=== PATIENT | female | born 1980 | race Caucasian/White ===

== ENCOUNTER 2016-12-31 20:23 | Emergency (ER) | payer BC ==
[~2016-12-31] VITALS: Ht 157.5 cm; Wt 55.0 kg
[2016-12-31 20:24] VITALS: BP 134/78; PULSE 71; RESP 18; TEMP 98.4; O2SAT 97
[2016-12-31] MEDS ORDERED: LEVO75TA3 PO (20:33)
[2016-12-31] MEDS ORDERED: SODIUM CHLOR 0.9% 1000 ML INJ 1,000 ML IV ONE (20:39)
[2016-12-31] MEDS ORDERED: SODIUM CHLORIDE 0.9% FLUSH 5 ML FLUSH IVF PRN (20:45)
--- NOTE | 2016-12-31 20:59 | PD ---
HPI . Syncope Chief Complaint: Syncope/Near-Syncope Time Seen by Provider: 20:38 Travel History International Travel<30 days: No Contact w/Intl Traveler<30days: No Traveled to known affect area: No History of Present Illness HPI Patient presents to us from upstairs where she was visiting a family member. She had a syncopal event. The patient and the described nausea and dizziness. The patient then grabbed her and was lowered to the floor. The feels that she had a syncopal episode lasting about 15 seconds. Since then, she has had redness and warmth of her face and ears. The patient and the states that this is not an abnormal thing for this patient. The patient denies any associated chest pain, shortness of breath or palpitations. She denies any previous similar history. PENDING SALE TO [facility] Past Medical History Narrative Medical Past medical history is significant for hypothyroidism. Thyroid Disease: Yes (HYPO) Tetanus Vaccination: > 5 Years Influenza Vaccination: No ?: Not LMP: 12/14/16 : 2 Para: 2 Tubal Ligation: Yes Past Surgical History Section: Yes Social History Alcohol Use: No (OCC) Tobacco Use: No Substance Use: No Allergies-Medications (Allergen,Severity, Reaction): Coded Allergies: No Known Allergies (Unverified , 12/31/16) Reported Meds & Prescriptions Reported Meds & Active Scripts Active Reported Levothyroxine (Levothyroxine Sodium) 75 Mcg Tab 75 Mcg PO DAILY Review of Systems Except as stated in HPI: all other systems reviewed are Neg Eyes: No: Blurred Vision HENT: Positive: Lightheadedness, No: Headaches Cardiovascular: No: Chest Pain or Discomfort, Palpitations Respiratory: No: Shortness of Breath Gastrointestinal: Positive: Nausea Neurologic: Positive: Dizziness, Syncope, No: Focal Abnormalities, Headache, Slurred Speech, Incontinence, Seizures Physical Exam Narrative GENERAL: Healthy-appearing in no acute distress. SKIN: Warm and dry. HEAD: Atraumatic. Normocephalic. Scalp is nontender. EYES: Pupils equal and round. Extraocular movements are intact. ENT: No nasal bleeding or discharge. Mucous membranes pink and moist. NECK: Trachea midline. Neck is supple and nontender. CARDIOVASCULAR: Regular rate and rhythm. Heart sounds are normal. RESPIRATORY: No accessory muscle use. Lungs are clear with full air movement throughout. GASTROINTESTINAL: Abdomen soft, non-tender, nondistended. MUSCULOSKELETAL: No obvious deformities. No edema. NEUROLOGICAL: Awake and alert. No obvious cranial nerve deficits. Motor grossly within normal limits. Normal speech. PSYCHIATRIC: Appropriate mood and affect; insight and judgment normal. Data Data Last Documented VS Vital Signs Date Time Temp Pulse Resp B/P Pulse Ox O2 Delivery O2 Flow Rate FiO2 12/31/16 20:28 72 18 98 12/31/16 20:24 98.4 134/78 Orders Electrocardiogram (12/31/16 20:39) Basic Metabolic Panel (Bmp) (12/31/16 20:39) Ed Urine Pregnancytest Poc (12/31/16 20:39) Complete Blood Count With Diff (12/31/16 20:39) Ckmb (Isoenzyme) Profile (12/31/16 20:39) Troponin I (12/31/16 20:39) Chest, Single Ap (12/31/16 20:39) Ecg Monitoring (12/31/16 20:39) Iv Access Insert/Monitor (12/31/16 20:39) Oximetry (12/31/16 20:39) Sodium Chloride 0.9% Flush (Ns Flush) (12/31/16 20:45) Sodium Chlor 0.9% 1000 Ml Inj (Ns 1000 M (12/31/16 20:39) CKMB (12/31/16 21:00) CKMB% (12/31/16 21:00) Labs Laboratory Tests Test 12/31/16 21:00 White Blood Count 9.5 TH/MM3 Red Blood Count 4.58 MIL/MM3 Hemoglobin 13.5 GM/DL Hematocrit 39.3 % Mean Corpuscular Volume 85.9 FL Mean Corpuscular Hemoglobin 29.5 PG Mean Corpuscular Hemoglobin 34.3 % Concent Red Cell Distribution Width 13.1 % Platelet Count 220 TH/MM3 Mean Platelet Volume 10.3 FL Neutrophils (%) (Auto) 59.5 % Lymphocytes (%) (Auto) 28.8 % Monocytes (%) (Auto) 5.4 % Eosinophils (%) (Auto) 5.2 % Basophils (%) (Auto) 1.1 % Neutrophils # (Auto) 5.7 TH/MM3 Lymphocytes # (Auto) 2.7 TH/MM3 Monocytes # (Auto) 0.5 TH/MM3 Eosinophils # (Auto) 0.5 TH/MM3 Basophils # (Auto) 0.1 TH/MM3 CBC Comment DIFF FINAL Differential Comment Sodium Level 136 MEQ/L Potassium Level 3.5 MEQ/L Chloride Level 101 MEQ/L Carbon Dioxide Level 26.1 MEQ/L Anion Gap 9 MEQ/L Blood Urea Nitrogen 21 MG/DL Creatinine 0.81 MG/DL Estimat Glomerular Filtration 80 ML/MIN Rate Random Glucose 102 MG/DL Calcium Level 8.5 MG/DL Total Creatine Kinase 114 U/L Troponin I LESS THAN 0.02 NG/ML MDM Medical Decision Making Medical Screen Exam Complete: Yes Emergency Medical Condition: Yes Interpretation(s) EKG shows a normal sinus rhythm with no acute ischemic changes. She has a normal EKG. Differential Diagnosis My differential diagnosis of syncope includes but is not limited to cardiac arrhythmia, hypovolemia, anemia, neurological catastrophe, vasovagal response Narrative Course Patient presents from upstairs with the chief complaint of syncope. She had a prodrome of nausea and dizziness. She probably had a vasovagal event. Last Impressions Chest X-Ray 12/31/162038 Signed Impressions: Service Date/Time: December 20:59 - CONCLUSION: No acute disease. Kevin Sidhu MD The chest x-ray was independently viewed by me. CBC & BMP Diagram 12/31/16 21:00 Cardiac enzymes are negative. Diagnosis Primary Impression: Syncope and collapse Patient Instructions: General Instructions, Syncope (DC) Disposition: 01 DISCHARGE HOME Condition: Stable Lora Blackwell MD Dec 31, 2016 20:59
[2016-12-31 21:24] LABS: AUTOMATED NEUTROPHIL # 5.7 TH/MM3 (1.8-7.7); BASOPHIL # 0.1 TH/MM3 (0-0.2); BASOPHIL % 1.1 % (0.0-2.0); EOSINOPHIL # 0.5 TH/MM3 (0-0.4); EOSINOPHIL % 5.2 % (0.0-4.0); HEMATOCRIT 39.3 % (35.0-46.0); HEMO FLAGS DIFF FINAL; LYMPH % 28.8 % (9.0-44.0); LYMPHOCYTE # 2.7 TH/MM3 (1.0-4.8); MEAN CELL VOLUME 85.9 FL (80.0-100.0); MEAN CORPUSCULAR HEMOGLOBIN 29.5 PG (27.0-34.0); MEAN CORPUSCULAR HGB CONC 34.3 % (32.0-36.0); MONO % 5.4 % (0.0-8.0); NEUT % 59.5 % (16.0-70.0); PLATELET COUNT 220 TH/MM3 (150-450); RED BLOOD COUNT 4.58 MIL/MM3 (4.00-5.30); RED CELL DISTRIBUTION WIDTH 13.1 % (11.6-17.2); WHITE BLOOD COUNT 9.5 TH/MM3 (4.0-11.0)
--- NOTE | 2016-12-31 21:29 | RADRPT ---
EXAM DATE/TIME: 12/31/2016 20:59 [facility] COMPARISON: No previous studies available for comparison. INDICATIONS : Patient has been dizzy and nausea since today. MEDICAL HISTORY : None. SURGICAL HISTORY : None. ENCOUNTER: Initial ACUITY: 1 day PAIN SCORE: 5/10 LOCATION: Bilateral chest FINDINGS: A single view of the chest demonstrates the lungs to be symmetrically aerated without evidence of mas s, infiltrate or effusion. The cardiomediastinal contours are unremarkable. Osseous structures are intact. CONCLUSION: No acute disease. Kevin Sidhu MD on December 31, 2016 at 21:27 Board Certified Radiologist. This report was verified electronically.
[2016-12-31 21:51] LABS: ANION GAP 9 MEQ/L (5-15); BICARBONATE 26.1 MEQ/L (21.0-32.0); BLOOD UREA NITROGEN 21 MG/DL (7-18); CHLORIDE 101 MEQ/L (98-107); GLOMERULAR FILTRATION RATE 80 ML/MIN (>89); POTASSIUM 3.5 MEQ/L (3.5-5.1); SODIUM (NA) 136 MEQ/L (136-145)
[2016-12-31 21:55] LABS: CREATINE KINASE 114 U/L (26-192)
[2016-12-31 22:09] LABS: CKMB 0.9 NG/ML (0.5-3.6)
[2016-12-31 22:30] VITALS: BP 102/62; PULSE 73; RESP 18; TEMP 98.1; O2SAT 99
--- NOTE | 2017-01-01 12:50 | EKG ---
Date Performed: 12/31/2016 Time Performed: 20:28:46 PTAGE: 36 years EKG: Sinus rhythm NORMAL ECG NO PREVIOUS TRACING DOCTOR: Arnaud Henning Interpretating Date/Time 01/01/2017 12:48:12
== END 2016-12-31 22:38 | disposition home or self-care (01) ==
LOC: NEPE 20:23
DX: R55 Syncope and collapse (principal); R42 Dizziness and giddiness; E03.9 Hypothyroidism, unspecified
CPT/HCPCS: 71010; 80048; 82550; 82552; 84484; 84703; 85025; 93005; 99284; J7030